=== PATIENT | male | born 1950 | race Caucasian/White ===

== ENCOUNTER 2016-07-08 11:10 | Emergency (ER) | payer OTHER ==
[2016-07-08 11:17] VITALS: BP 146/80
[2016-07-08] MEDS ORDERED: NORCO-5 PO ONE (11:32)
[2016-07-08] MEDS ORDERED: ZOFRAN ODT PO ONE (11:32)
[2016-07-08] MEDS ORDERED: NORCO-5 ONE (11:34)
[2016-07-08] MEDS ORDERED: ZOFRAN ODT ONE (11:34)
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
--- NOTE | 2016-07-08 12:40 | Diag Imaging Result Document ---
PROCEDURE NAME: HEAD/C-SPINE W/O CONTRAST - 07/08/2016 CT HEAD WITHOUT CONTRAST: A dose-reduction protocol was used. COMPARISON: No comparison exam. FINDINGS: There is no evidence of intracranial hemorrhage, mass effect, midline shift, or hydrocephalus. There is no skull fracture. Visualized portions of paranasal sinuses and mastoid air cells appear clear. IMPRESSION: No evidence of intracranial injury. No hemorrhage or mass effect. CT CERVICAL SPINE WITHOUT CONTRAST: A dose-reduction protocol was used. Axial and reformatted sagittal and coronal images are obtained. COMPARISON: No comparison exam. FINDINGS: There are substantial degenerative changes at the atlantoaxial articulation. There is degenerative disk disease which is most prominent at C3-4, there is associated posterior osteophytes with mild spinal stenosis. There is posterior disk protrusion with slight narrowing of the spinal canal at C5-6. There is degenerative facet disease which is most prominent at C2-3 on the left. There is approximately 2 mm retrolisthesis of C3 associated with the degenerative disease. There is no fracture identified. There is no substantial subluxation seen. There is no precervical soft tissue swelling identified. IMPRESSION: 1. Multilevel degenerative disease. Associated mild spinal stenosis at C3-4 and slight narrowing of the spinal canal at C5-6. 2. No evidence of injury to the cervical spine. [facility]
--- NOTE | 2016-07-08 13:29 | Diag Imaging Result Document ---
PROCEDURE NAME: KNEE 3 VIEWS LEFT - 07/08/2016 LEFT KNEE, 3 VIEWS: COMPARISON: None. FINDINGS: There is a total knee prosthesis. Alignment is anatomic. No evidence of hardware fracture or loosening. Surgical clips at the medial knee soft tissues may be vein harvest clips. IMPRESSION: No acute disease or complication.
--- NOTE | 2016-07-08 13:33 | Diag Imaging Result Document ---
PROCEDURE NAME: LUMBAR SPINE - 07/08/2016 LUMBAR SPINE, 6 VIEWS: COMPARISON: CT from 07/05/2016. FINDINGS: There is contrast throughout the colon from the patient's recent CT. There is no obvious fracture. No subluxation. There is mild multilevel disk degeneration most notably at T11- T12, L1-L2 and L2-L3. IMPRESSION: Degenerative disk disease. No acute disease.
--- NOTE | 2016-07-08 13:38 | Diag Imaging Result Document ---
PROCEDURE NAME: XRAY PELVIS W/HIP 2-3VW LT - 07/08/2016 PELVIS AND 2 VIEWS OF THE LEFT HIP: COMPARISON: CT abdomen and pelvis 07/05/2016. FINDINGS: Bones are intact and normally aligned. No fracture or subluxation. There is mild bilateral hip osteoarthritis with some acetabular osteophyte formation. IMPRESSION: No acute disease or change from prior.
--- NOTE | 2016-07-08 13:39 | Diag Imaging Result Document ---
PROCEDURE NAME: ELBOW COMPLETE LEFT - 07/08/2016 LEFT ELBOW, 3 VIEWS: COMPARISON: None. FINDINGS: Bones are intact and normally aligned. Joint spaces and soft tissues are clear. IMPRESSION: Negative exam.
== END 2016-07-08 13:01 | disposition home or self-care (01) ==
LOC: P.ED 11:10
DX: S59.902A Unspecified injury of left elbow, initial encounter (principal); S79.912A Unspecified injury of left hip, initial encounter; M25.552 Pain in left hip; M54.5 Low back pain; M25.522 Pain in left elbow; Z85.46 Personal history of malignant neoplasm of prostate; Z86.73 Personal history of transient ischemic attack (TIA), and cerebral infarction without residual deficits; V03.00XA Pedestrian on foot injured in collision with car, pick-up truck or van in nontraffic accident, initial encounter
CPT/HCPCS: 70450; 72110; 72125